=== PATIENT | male | born 1955 | race Caucasian/White ===

== ENCOUNTER 2017-04-16 14:32 | Outpatient (CLI) ==
[2017-04-16 14:45] LABS: BASOPHILS # (AUTO) 0.1 K/uL (0-0.2); BASOPHILS % (AUTO) 0.8 % (0.0-3.0); EOSINOPHILS # (AUTO) 0.2 K/ul (0.0-0.7); EOSINOPHILS % (AUTO) 3.8 % (0.0-7.0); HEMATOCRIT 45.3 % (42.0-52.0); HEMOGLOBIN 15.5 g/dl (14.0-18.0); IMMATURE GRANULOCYTE % (AUTO) 0.2 % (0.0-5.0); LYMPHOCYTES # (AUTO) 2.3 K/uL (0.60-3.4); LYMPHOCYTES % (AUTO) 38.2 (10.0-50.0); MEAN CORPUSCULAR HEMOGLOBIN 32.2 pg (27.0-31.0); MEAN CORPUSCULAR HGB CONC 34.2 (31.8-35.4); MONOCYTES # (AUTO) 0.7 K/uL (0.4-2.0); MONOCYTES % (AUTO) 11.2 (0-10); NEUTROPHILS # (AUTO) 2.8 K/ul (2.0-6.9); NEUTROPHILS % (AUTO) 45.8; PLATELET COUNT 163 10^3/uL (140-440); RED BLOOD COUNT 4.82 10^6/ul (4.70-6.10)
[2017-04-16 16:23] LABS: ALBUMIN 3.9 g/dL (3.4-5.0); ALBUMIN/GLOBULIN RATIO 1.26; ANION GAP 13.1; BILIRUBIN,TOTAL 0.29 mg/dL (0.00-1.20); BUN/CREATININE RATIO 16.82; CALCIUM 9.2 mg/dL (8.2-10.2); CHOL/HDL RATIO 2.9 (4.5-6.4); CREATININE 1.07 mg/dL (0.60-1.10); POTASSIUM 4.1 mmol/L (3.5-5.1)
== END 2017-04-16 14:33 | disposition home or self-care (01) ==
LOC: LAB 14:32
PROVIDERS: ATTEND Emergency Medicine
DX: I10 Essential (primary) hypertension (principal); I25.10 Atherosclerotic heart disease of native coronary artery without angina pectoris
CPT/HCPCS: 36415; 80053; 80061; 84443; 85025

== ENCOUNTER 2017-08-08 16:12 | Outpatient (CLI) ==
[2017-08-08 16:27] LABS: BASOPHILS # (AUTO) 0.1 K/uL (0-0.2); BASOPHILS % (AUTO) 0.9 % (0.0-3.0); EOSINOPHILS # (AUTO) 0.3 K/ul (0.0-0.7); EOSINOPHILS % (AUTO) 3.9 % (0.0-7.0); HEMATOCRIT 47.2 % (42.0-52.0); HEMOGLOBIN 16.1 g/dl (14.0-18.0); IMMATURE GRANULOCYTE % (AUTO) 0.2 % (0.0-5.0); LYMPHOCYTES # (AUTO) 2.3 K/uL (0.60-3.4); LYMPHOCYTES % (AUTO) 36.9 (10.0-50.0); MEAN CORPUSCULAR HEMOGLOBIN 32.3 pg (27.0-31.0); MEAN CORPUSCULAR HGB CONC 34.1 (31.8-35.4); MEAN CORPUSCULAR VOLUME 94.6 fl (80.0-94.0); MONOCYTES # (AUTO) 0.7 K/uL (0.4-2.0); MONOCYTES % (AUTO) 10.6 (0-10); NEUTROPHILS % (AUTO) 47.5; PLATELET COUNT 177 10^3/uL (140-440); RED BLOOD COUNT 4.99 10^6/ul (4.70-6.10); WHITE BLOOD COUNT 6.34 K/ul (4.2-10.2)
[2017-08-08 17:07] LABS: ALBUMIN 3.8 g/dL (3.4-5.0); ALBUMIN/GLOBULIN RATIO 1.03; ANION GAP 10.5; BILIRUBIN,TOTAL 0.22 mg/dL (0.00-1.20); BUN/CREATININE RATIO 18.94; CALCIUM 9.6 mg/dL (8.2-10.2); CHOL/HDL RATIO 3.8 (4.5-6.4); CREATININE 0.95 mg/dL (0.60-1.10); POTASSIUM 4.5 mmol/L (3.5-5.1); TOTAL PROTEIN 7.5 g/dL (5.8-8.1)
== END 2017-08-08 16:13 | disposition home or self-care (01) ==
LOC: LAB 16:12
PROVIDERS: ATTEND Emergency Medicine
DX: E78.5 Hyperlipidemia, unspecified (principal); I10 Essential (primary) hypertension; I25.10 Atherosclerotic heart disease of native coronary artery without angina pectoris
CPT/HCPCS: 36415; 80053; 80061; 84443; 85025

== ENCOUNTER 2018-10-17 11:52 | Outpatient (CLI) | END 2018-10-17 11:53 | disposition home or self-care (01) | LOC: RHC-LAB 11:52 → FCC-LAB 11:53 | PROVIDERS: ATTEND Nurse Practitioner Family | DX: E78.5 Hyperlipidemia, unspecified (principal); I10 Essential (primary) hypertension; I25.10 Atherosclerotic heart disease of native coronary artery without angina pectoris | CPT/HCPCS: 36415; 80053; 80061; 85027 ==

== ENCOUNTER 2018-10-27 07:59 | Outpatient (CLI) | END 2018-10-27 08:00 | disposition home or self-care (01) | LOC: RHC-LAB 07:59 | PROVIDERS: ATTEND Nurse Practitioner Family | DX: E87.5 Hyperkalemia (principal); I10 Essential (primary) hypertension ==

== ENCOUNTER 2018-10-27 08:57 | Outpatient (CLI) | END 2018-10-27 08:58 | disposition home or self-care (01) | LOC: LAB 08:57 | PROVIDERS: ATTEND Nurse Practitioner Family | DX: E87.5 Hyperkalemia (principal); I10 Essential (primary) hypertension | CPT/HCPCS: 36415; 80048 ==